=== PATIENT | male | born 1950 | race Caucasian/White ===

== ENCOUNTER → 2016-10-14 | Outpatient (CLI) | payer OTHER ==
[~2016-10-14] MED LIST: APRACLONIDINE 1% 0.1 ML OPH ONE; ASPI-664 PO; BENA1TAB13 PO; GLIM4TAB PO; LORA0.5T PO; METF1000 PO; OMEP20CA16 PO; OPHTHALMIC IRRIG SOLUTION 120 ML ONE; PARO-37 PO; PHENYLephrine 10% 5 ML OPH ONE; PROPARACAINE 0.5% 15 ML OPH ONE; SIMV5TAB50 PO; TEMA30CA6 PO; TERB250T46 PO; TROPICAMIDE 1% 3 ML OPH ONE
== END | disposition home or self-care (01) ==
LOC: RAD 09:26
PROVIDERS: ATTEND Ophthalmology
DX: H40.1420 Capsular glaucoma with pseudoexfoliation of lens, left eye, stage unspecified (principal)
CPT/HCPCS: 66761; Z7610